=== PATIENT | male | born 1945 | race Caucasian/White ===

== ENCOUNTER 2017-10-11 18:28 | Emergency (ER) | payer MEDICARE ==
[~2017-10-11] VITALS: Ht 182.9 cm; Wt 80.3 kg
[~2017-10-11 18:28] MED LIST: ASPI-515 PO; SIMV40TA3 PO; TADA10TA PO
[2017-10-11] MEDS ORDERED: ONDANSETRON ODT 4 MG PO ONE (19:00)
[2017-10-11] MEDS ORDERED: OXYcodone/APAP 5/325MG TABLET PO ONE (19:00)
[2017-10-11] MEDS ORDERED: ONDANSETRON ODT 4 MG ONE (19:05)
[2017-10-11] MEDS ORDERED: HYDROcodone/APAP 5/325 TABLET ONE (19:06)
[2017-10-11] MEDS ORDERED: BACITRACIN ZINC OINT 500U/GM, 0.9 GM ONE (19:44)
[2017-10-11 20:17] VITALS: BP 126/82
== END 2017-10-11 20:20 | disposition home or self-care (01) ==
LOC: ED 19:50
DX: S20.212A Contusion of left front wall of thorax, initial encounter (principal); S09.90XA Unspecified injury of head, initial encounter; S46.992A Other injury of unspecified muscle, fascia and tendon at shoulder and upper arm level, left arm, initial encounter; E78.5 Hyperlipidemia, unspecified; I25.2 Old myocardial infarction; Z85.46 Personal history of malignant neoplasm of prostate; W18.30XA Fall on same level, unspecified, initial encounter; Y93.89 Activity, other specified; Y92.828 Other wilderness area as the place of occurrence of the external cause; Y99.9 Unspecified external cause status
CPT/HCPCS: 70450; 71101; 99284; Q0162

== ENCOUNTER → 2017-10-16 | Outpatient (CLI) | payer MEDICARE ==
[2017-10-16 11:12] LABS: ALANINE AMINOTRANSFERASE 23 U/L (12-78); ALBUMIN 3.8 g/dL (3.4-5.0); ANION GAP 6 mmol/L (5-15); CALCIUM 8.9 mg/dL (8.5-10.1); CHLORIDE 107 mmol/L (98-107); CHOLESTEROL, TOTAL 125 mg/dL (140-239); CREATININE 0.93 mg/dL (0.7-1.3); TRIGLYCERIDES 117 mg/dL (50-200); VLDL CHOLESTEROL 23 mg/dL (0-25)
[2017-10-16 11:14] LABS: ALKALINE PHOSPHATASE 68 U/L (45-117); BILIRUBIN,TOTAL 0.7 mg/dL (0.2-1.0); CHOL/HDL RATIO 3.7; HDL CHOL % 27 % (26-37); HDL CHOLESTEROL (DIRECT) 34 mg/dL (40-60); LDL CHOLESTEROL,CALCULATED 68 mg/dL (54-169); TOTAL PROTEIN 7.1 g/dL (6.4-8.2)
== END ==
LOC: CVU 09:50
PROVIDERS: ATTEND Internal Medicine Cardiovascular Disease
DX: I65.23 Occlusion and stenosis of bilateral carotid arteries (principal); I10 Essential (primary) hypertension; E78.2 Mixed hyperlipidemia
CPT/HCPCS: 36415; 80053; 80061; 93880

== ENCOUNTER 2017-11-05 21:14 | Emergency (ER) | payer MEDICARE ==
[~2017-11-05] VITALS: Ht 182.9 cm; Wt 77.0 kg
[2017-11-05 21:24] VITALS: BP 132/72
[2017-11-05] MEDS ORDERED: OXYcodone/APAP 5/325MG TABLET PO ONE (22:00)
[2017-11-05] MEDS ORDERED: KETOROLAC 30 MG/1 ML IM ONE (22:00)
[2017-11-05] MEDS ORDERED: KETOROLAC 30 MG/1 ML ONE (22:12)
[2017-11-05] MEDS ORDERED: OXYcodone/APAP 5/325MG TABLET ONE (22:12)
== END 2017-11-05 23:27 | disposition home or self-care (01) ==
LOC: ED 21:37
DX: S42.254A Nondisplaced fracture of greater tuberosity of right humerus, initial encounter for closed fracture (principal); W01.0XXA Fall on same level from slipping, tripping and stumbling without subsequent striking against object, initial encounter; Y93.89 Activity, other specified; Y92.410 Unspecified street and highway as the place of occurrence of the external cause; Y99.9 Unspecified external cause status; E78.5 Hyperlipidemia, unspecified; I25.2 Old myocardial infarction; Z85.46 Personal history of malignant neoplasm of prostate; F17.200 Nicotine dependence, unspecified, uncomplicated
CPT/HCPCS: 73030; 73060; 96372; 99284; J1885

== ENCOUNTER → 2020-04-03 | Outpatient (CLI) | payer MEDICARE ==
[~2020-04-03] MED LIST changes: +REGADENOSON 0.4 MG/5 ML SYRINGE ONE; +SIMV40TA20 PO; -SIMV40TA3 PO
== END | disposition home or self-care (01) ==
LOC: CFH 06:41
PROVIDERS: ATTEND Internal Medicine Cardiovascular Disease
DX: I35.0 Nonrheumatic aortic (valve) stenosis (principal); I25.10 Atherosclerotic heart disease of native coronary artery without angina pectoris; I10 Essential (primary) hypertension; I25.5 Ischemic cardiomyopathy
CPT/HCPCS: 78452; 93017; 93306; A9502; J2785

== ENCOUNTER 2020-04-07 07:48 | Day surgery (SDC) | payer MEDICARE ==
[~2020-04-07] VITALS: Ht 182.9 cm; Wt 77.3 kg
[~2020-04-07 07:48] MED LIST changes: -REGADENOSON 0.4 MG/5 ML SYRINGE ONE
[2020-04-07 08:39] VITALS: BP 105/62
[2020-04-07] MEDS ORDERED: ISOS30TA8 PO (08:45)
[2020-04-07] MEDS ORDERED: METO25TA91 PO (08:45)
[2020-04-07] MEDS ORDERED: ASPI-496 PO (08:45)
[2020-04-07 09:01] LABS: BASOPHILS # (AUTO) 0.05 x10^3/uL (0-0.1); BASOPHILS % (AUTO) 1 % (0-1); EOSINOPHILS # (AUTO) 0.21 x10^3/uL (0-0.4); EOSINOPHILS % (AUTO) 4 % (1-7); LYMPHOCYTES # (AUTO) 1.71 x10^3/uL (1-3.4); LYMPHOCYTES % (AUTO) 28 % (22-44); MD NO; MEAN CORPUSCULAR HEMOGLOBIN 30.4 pg (27.5-34.5); MEAN CORPUSCULAR HGB CONC 33.7 g/dL (33.2-36.2); MEAN PLATELET VOLUME 8.9 fL (7.4-10.4); MONOCYTES # (AUTO) 0.37 x10^3/uL (0.2-0.8); MONOCYTES % (AUTO) 6 % (2-9); NEUTROPHILS % (AUTO) 61 % (42-75); PLATELET COUNT 176 x10^3/uL (130-400); RED BLOOD COUNT 5.05 x10^6/uL (4.38-5.82); RED CELL DISTRIBUTION WIDTH 12.9 % (9.4-14.8)
[2020-04-07 09:15] LABS: CALCIUM 9.1 mg/dL (8.5-10.1); CHLORIDE 113 mmol/L (98-107)
[2020-04-07] MEDS ORDERED: VERAPAMIL 2.5 MG/ML, 2ML ONE (09:47)
[2020-04-07] MEDS ORDERED: MIDAZOLAM 1 MG/ML, 5ML ONE (09:47)
[2020-04-07] MEDS ORDERED: FENTANYL PF 100 MCG/2ML ONE (09:47)
[2020-04-07] MEDS ORDERED: BIVALIRUDIN 250 MG ONE (09:47)
[2020-04-07] MEDS ORDERED: TICAGRELOR 90 MG TABLET ONE (09:47)
[2020-04-07] MEDS ORDERED: HEPARIN 1,000 UNITS/ML, 10ML ONE (09:48)
[2020-04-07] MEDS ORDERED: LIDOCAINE-MPF 1%, 5ML ONE (09:48)
[2020-04-07 09:51] LABS: ANION GAP 4 mmol/L (5-15)
== END 2020-04-07 14:04 | disposition home or self-care (01) ==
LOC: CACL 07:48
PROVIDERS: ATTEND Internal Medicine Cardiovascular Disease
DX: I25.118 Atherosclerotic heart disease of native coronary artery with other forms of angina pectoris (principal); I65.21 Occlusion and stenosis of right carotid artery; E78.2 Mixed hyperlipidemia; E78.00 Pure hypercholesterolemia, unspecified; I10 Essential (primary) hypertension; I25.2 Old myocardial infarction; Z95.818 Presence of other cardiac implants and grafts; Z79.82 Long term (current) use of aspirin; Z79.899 Other long term (current) drug therapy; Z98.890 Other specified postprocedural states; Z87.891 Personal history of nicotine dependence; Z79.4 Long term (current) use of insulin; Z01.810 Encounter for preprocedural cardiovascular examination
CPT/HCPCS: 36415; 80048; 85025; 93458; 93880; 93970; 99156; C1769; C1894; J1644; J2250; J3010; Q9967; J0583

== ENCOUNTER 2020-04-12 04:39 | Inpatient (IN) | payer MEDICARE ==
[2020-04-11 12:39] LABS: BASOPHILS # (AUTO) 0.05 x10^3/uL (0-0.1); BASOPHILS % (AUTO) 1 % (0-1); EOSINOPHILS # (AUTO) 0.18 x10^3/uL (0-0.4); EOSINOPHILS % (AUTO) 3 % (1-7); LYMPHOCYTES % (AUTO) 35 % (22-44); MD NO; MEAN CORPUSCULAR HEMOGLOBIN 30.3 pg (27.5-34.5); MEAN CORPUSCULAR HGB CONC 33.3 g/dL (33.2-36.2); MEAN PLATELET VOLUME 8.9 fL (7.4-10.4); MONOCYTES % (AUTO) 7 % (2-9); NEUTROPHILS % (AUTO) 54 % (42-75); PLATELET COUNT 179 x10^3/uL (130-400); RED CELL DISTRIBUTION WIDTH 13.2 % (9.4-14.8)
[2020-04-11 12:50] LABS: ALANINE AMINOTRANSFERASE 38 U/L (12-78); ALBUMIN 3.9 g/dL (3.4-5.0); ANION GAP 1 mmol/L (5-15); CALCIUM 9.1 mg/dL (8.5-10.1); CHLORIDE 109 mmol/L (98-107); CREATININE 0.88 mg/dL (0.7-1.3)
[2020-04-11 12:53] LABS: ALKALINE PHOSPHATASE 68 U/L (45-117); BILIRUBIN,TOTAL 0.7 mg/dL (0.2-1.0); TOTAL PROTEIN 6.9 g/dL (6.4-8.2)
[2020-04-11 12:54] LABS: INTERNATIONAL NORMALIZED RATIO 0.96 (0.93-1.1); PROTHROMBIN TIME 10.2 Seconds (9.6-11.5)
[2020-04-11 13:32] LABS: MICROSCOPIC INDICATED
[~2020-04-12] VITALS: Ht 182.9 cm; Wt 75.3 kg
[~2020-04-12 04:39] MED LIST changes: +ASPI-496 PO; +ISOS30TA8 PO; +METO25TA91 PO
[2020-04-12] MEDS ORDERED: CHLORHEXIDINE 15 ML UDC MM PRN (05:00)
[2020-04-12] MEDS ORDERED: METOPROLOL TARTRATE 25 MG TAB PO ONE (05:00)
[2020-04-12] MEDS ORDERED: INSULIN LISPRO 100 UNITS/ML, PEN SQ-INSULIN SCH (05:00)
[2020-04-12] MEDS: MUPIROCIN OINT 2%, 22GM TP SCH ×2 (05:07→20:32)
[2020-04-12] MEDS ORDERED: FENTANYL PF 250 MCG/5ML ONE ×5 (06:41→06:42)
[2020-04-12] MEDS ORDERED: MIDAZOLAM 10MG/2 ML ONE (06:41)
[2020-04-12] MEDS ORDERED: EPINEPHRINE 1 MG/ML, 1ML ONE (06:43)
[2020-04-12] MEDS ORDERED: ROCURONIUM 10MG/ML,5ML ONE ×3 (06:43→09:42)
[2020-04-12] MEDS ORDERED: AMINOCAPROIC ACID 250 MG/ML, 20ML ONE ×2 (06:43)
[2020-04-12] MEDS ORDERED: PHENYLEPHRINE 10 MG/ML ONE (06:43)
[2020-04-12] MEDS ORDERED: PROPOFOL 10 MG/ML, 20ML ONE (06:43)
[2020-04-12] MEDS ORDERED: HEPARIN 1,000 UNITS/ML, 10ML ONE (06:44)
[2020-04-12] MEDS ORDERED: PAPAVERINE 30 MG/ML, 2ML ONE (06:44)
[2020-04-12] MEDS ORDERED: VANCOMYCIN 1,200 MG in SODIUM CHLORIDE 0.9% 250 ML IV PRN (07:30)
[2020-04-12] MEDS ORDERED: PHENYLEPHRINE 50 MG in SODIUM CHLORIDE 0.9% 245 ML IV PRN ×2 (07:30→12:33)
[2020-04-12] MEDS ORDERED: POTASSIUM CHLORIDE 80 MEQ, SODIUM BICARBONATE 8.4% 10 MEQ, MAGNESIUM SULFATE 0.5 GM, LI... IV PRN (07:30)
[2020-04-12] MEDS ORDERED: CEFUROXIME 1.5 GM in SODIUM CHLORIDE 0.9% 50 ML IVPB PRN (07:30)
[2020-04-12] MEDS ORDERED: ALBUMIN HUMAN 5% 500 ML IV PRN (07:30)
[2020-04-12] MEDS ORDERED: DEXMEDETOMIDINE 200 MCG in SODIUM CHLORIDE 0.9% 48 ML IV PRN ×2 (07:30→12:33)
[2020-04-12] MEDS ORDERED: MANNITOL PMX 20% 500 ML IVPB PRN (07:30)
[2020-04-12] MEDS ORDERED: REGULAR INSULIN 100 UNITS in SODIUM CHLORIDE 0.9% 99 ML IV PRN ×2 (07:30→12:33)
[2020-04-12] MEDS ORDERED: EPINEPHRINE 5 MG in SODIUM CHLORIDE 0.9% 245 ML IV PRN ×2 (07:30→13:00)
[2020-04-12] MEDS: DOCUSATE 100 MG CAPSULE PO SCH ×2 (09:00→20:32)
[2020-04-12] MEDS: SODIUM CHLORIDE FLUSH 10ML SYR IVF SCH ×3 (09:00→20:32)
[2020-04-12] MEDS ORDERED: PROTAMINE SULFATE 10 MG/ML, 25ML ONE ×2 (09:57)
[2020-04-12] MEDS ORDERED: FILTER 0.22 MICRON FOR AMIODARONE IV PRN (11:00)
[2020-04-12] MEDS ORDERED: AMIODARONE 450 MG in DEXTROSE 5% 241 ML IV PRN (11:00)
[2020-04-12] MEDS ORDERED: FUROSEMIDE 20 MG/2 ML ONE (11:14)
[2020-04-12] MEDS ORDERED: MILRINONE 1 MG/ML, 10ML IV ONE (11:19)
[2020-04-12] MEDS ORDERED: AMIODARONE 50 MG/ML, 3ML ONE ×2 (11:50)
[2020-04-12] MEDS ORDERED: CALCIUM CHLORIDE 10%, 10ML SYR ONE ×2 (12:04)
[2020-04-12] MEDS ORDERED: FENTANYL PF 100 MCG/2ML ONE ×2 (12:09→12:12)
[2020-04-12] MEDS ORDERED: NITROGLYCERIN/D5W PMX 250 ML IV PRN (12:33)
[2020-04-12] MEDS ORDERED: SODIUM CHLORIDE 0.9% 1,000 ML IV PRN (12:33)
[2020-04-12] MEDS ORDERED: DOBUTAMINE 250 MG in SODIUM CHLORIDE 0.9% 230 ML IV PRN (12:33)
[2020-04-12] MEDS ORDERED: VASOPRESSIN 20 UNIT in SODIUM CHLORIDE 0.9% 99 ML IV PRN (12:33)
[2020-04-12] MEDS ORDERED: DEXTROSE 4 GM TAB.CHEW PO PRN (13:00)
[2020-04-12] MEDS ORDERED: GLUCAGON 1 MG IM PRN (13:00)
[2020-04-12] MEDS ORDERED: LACTATED RINGERS 1,000 ML IV PRN (13:00)
[2020-04-12] MEDS ORDERED: BISACODYL 10 MG SUPP PR PRN (13:00)
[2020-04-12] MEDS ORDERED: INSULIN REGULAR 100 UNITS/ML, 3ML VIAL IVPush PRN (13:00)
[2020-04-12] MEDS ORDERED: ONDANSETRON 2MG/ML, 2ML IVPush PRN (13:00)
[2020-04-12] MEDS: ASPIRIN 81 MG TABLET EC PO SCH (13:00)
[2020-04-12] MEDS ORDERED: MIDAZOLAM 1 MG/ML, 5ML IVPush PRN (13:00)
[2020-04-12] MEDS: KSCALE TO 4.5 IV SCH ×2 (13:00→19:00)
[2020-04-12] MEDS ORDERED: SODIUM BICARB 8.4%, 50ML SYRINGE IV PRN (13:00)
[2020-04-12] MEDS ORDERED: BISACODYL 5 MG EC TABLET PO PRN (13:00)
[2020-04-12] MEDS ORDERED: morphine SULFATE 10 MG/ML, 1ML IVPush PRN (13:00)
[2020-04-12] MEDS ORDERED: DEXTROSE 50%, 50ML SYRINGE IVPush PRN (13:00)
[2020-04-12] MEDS ORDERED: PROCHLORPERAZINE 5 MG/ML, 2ML IVPush PRN (13:00)
[2020-04-12] MEDS ORDERED: ACETAMINOPHEN 650 MG SUPP PR PRN (13:00)
[2020-04-12] MEDS ORDERED: MORPHINE SULFATE 4 MG/ML, 1ML ONE (13:01)
[2020-04-12] MEDS ORDERED: LIDOCAINE-MPF 2% ,5ML ONE (13:01)
[2020-04-12] MEDS ORDERED: SODIUM BICARB 8.4%, 50ML SYRINGE ONE (13:01)
[2020-04-12] MEDS ORDERED: HEPARIN 1,000 UNITS/ML, 30ML ONE (13:01)
[2020-04-12] MEDS ORDERED: SODIUM BICARBONATE 1 MEQ/ML, 50ML VIAL ONE (13:01)
[2020-04-12] MEDS ORDERED: ALBUMIN HUMAN 25% 50 ML ONE (13:02)
[2020-04-12 13:09] LABS: GLUCOSE BY BLOOD GAS ANALYZER 148 mg/dL (70-110); HEMOGLOBIN BY BLOOD GAS ANALYZ 11.6 g/dL (14.0-18.0); POTASSIUM BY BLOOD GAS ANALYZR 4.3 mmol/L (3.6-5.5)
[2020-04-12 13:21] LABS: INTERNATIONAL NORMALIZED RATIO 1.2 (0.93-1.1); PROTHROMBIN TIME 12.7 Seconds (9.6-11.5)
[2020-04-12] MEDS: MAGNESIUM SULFATE 1 GM in SODIUM CHLORIDE 0.9% 100 ML IVPB SCH (13:54)
[2020-04-12] MEDS: INSULIN LISPRO 100 UNITS/ML, PEN SQ-INSULIN SCH ×3 (15:12→21:02)
[2020-04-12 17:36] VITALS: BP 93/48
[2020-04-12 17:45] VITALS: BP 101/56
[2020-04-12] MEDS: OXYcodone IR 5MG TABLET PO PRN (17:57)
[2020-04-12 17:59] VITALS: BP 109/55
[2020-04-12] MEDS: CEFUROXIME 1.5 GM in SODIUM CHLORIDE 0.9% 50 ML IVPB SCH (20:31)
[2020-04-12] MEDS: MUPIROCIN OINT 2%, 22GM NAS SCH (20:32)
[2020-04-12] MEDS: HYDROcodone/APAP 5/325 TABLET PO PRN (20:40)
[2020-04-12] MEDS: VANCOMYCIN 1,200 MG in SODIUM CHLORIDE 0.9% 250 ML IVPB SCH (22:01)
[2020-04-13] MEDS: KSCALE TO 4.5 IV SCH ×2 (01:00→06:06)
[2020-04-13] MEDS: OXYcodone IR 5MG TABLET PO PRN ×4 (04:21→22:11)
[2020-04-13 04:55] VITALS: BP 102/50
[2020-04-13 05:46] LABS: ALBUMIN 3.3 g/dL (3.4-5.0); ANION GAP 9 mmol/L (5-15); CALCIUM 8.4 mg/dL (8.5-10.1); CHLORIDE 112 mmol/L (98-107); CREATININE 0.75 mg/dL (0.7-1.3)
[2020-04-13 05:47] LABS: BASOPHILS # (AUTO) 0.01 x10^3/uL (0-0.1); BASOPHILS % (AUTO) 0 % (0-1); EOSINOPHILS % (AUTO) 0 % (1-7); LYMPHOCYTES # (AUTO) 0.53 x10^3/uL (1-3.4); LYMPHOCYTES % (AUTO) 5 % (22-44); MD NO; MEAN CORPUSCULAR HEMOGLOBIN 30.7 pg (27.5-34.5); MEAN CORPUSCULAR HGB CONC 33.8 g/dL (33.2-36.2); MEAN CORPUSCULAR VOLUME 90.8 fL (81-97); MEAN PLATELET VOLUME 9.7 fL (7.4-10.4); MONOCYTES # (AUTO) 0.64 x10^3/uL (0.2-0.8); MONOCYTES % (AUTO) 6 % (2-9); NEUTROPHILS # (AUTO) 10.46 x10^3/uL (1.8-6.8); NEUTROPHILS % (AUTO) 90 % (42-75); PLATELET COUNT 180 x10^3/uL (130-400); RED BLOOD COUNT 3.62 x10^6/uL (4.38-5.82); RED CELL DISTRIBUTION WIDTH 13.3 % (9.4-14.8)
[2020-04-13] MEDS ORDERED: AMIODARONE 150 MG in DEXTROSE 5% 100 ML IV ONE (06:00)
[2020-04-13] MEDS ORDERED: POTASSIUM CHLORIDE PMX 100 ML IV ONE (06:00)
[2020-04-13] MEDS ORDERED: METOPROLOL 1 MG/ML, 5ML IVPush ONE (06:00)
[2020-04-13] MEDS: INSULIN LISPRO 100 UNITS/ML, PEN SQ-INSULIN SCH ×4 (06:07→21:00)
[2020-04-13] MEDS ORDERED: MAGNESIUM HYDROXIDE 8%, 30ML UDC PO PRN (08:00)
[2020-04-13] MEDS: CEFUROXIME 1.5 GM in SODIUM CHLORIDE 0.9% 50 ML IVPB SCH (08:30)
[2020-04-13] MEDS: VANCOMYCIN 1,200 MG in SODIUM CHLORIDE 0.9% 250 ML IVPB SCH (08:30)
[2020-04-13] MEDS: AMIODARONE 200 MG TABLET PO SCH ×2 (08:37→20:30)
[2020-04-13] MEDS: DOCUSATE 100 MG CAPSULE PO SCH ×2 (08:37→20:28)
[2020-04-13] MEDS: METOPROLOL TARTRATE 25 MG TAB PO/NG SCH ×2 (08:38→20:29)
[2020-04-13] MEDS: ASPIRIN 81 MG TABLET EC PO SCH (08:38)
[2020-04-13] MEDS: SODIUM CHLORIDE FLUSH 10ML SYR IVF SCH ×5 (08:39→20:30)
[2020-04-13] MEDS: MUPIROCIN OINT 2%, 22GM NAS SCH ×2 (08:39→22:03)
[2020-04-13] MEDS: MUPIROCIN OINT 2%, 22GM TP SCH ×2 (08:39→21:00)
[2020-04-13] MEDS ORDERED: FUROSEMIDE 20 MG/2 ML IV SCH (09:00)
[2020-04-13] MEDS: MAGNESIUM SULFATE 1 GM in SODIUM CHLORIDE 0.9% 100 ML IVPB SCH (11:40)
[2020-04-13 15:48] VITALS: BP 108/66
[2020-04-13 19:25] VITALS: BP 105/64
[2020-04-13] MEDS: SIMVASTATIN 40 MG TABLET PO SCH (20:28)
[2020-04-13] MEDS: CHLORHEXIDINE 15 ML UDC MM SCH (20:30)
[2020-04-14 00:58] VITALS: BP 104/63
[2020-04-14] MEDS: HYDROcodone/APAP 5/325 TABLET PO PRN ×2 (03:17→10:21)
[2020-04-14 03:59] LABS: ANION GAP 5 mmol/L (5-15); CALCIUM 7.7 mg/dL (8.5-10.1); CHLORIDE 106 mmol/L (98-107); CREATININE 0.72 mg/dL (0.7-1.3)
[2020-04-14 04:05] LABS: BASOPHILS # (AUTO) 0.02 x10^3/uL (0-0.1); BASOPHILS % (AUTO) 0 % (0-1); EOSINOPHILS # (AUTO) 0.01 x10^3/uL (0-0.4); EOSINOPHILS % (AUTO) 0 % (1-7); LYMPHOCYTES # (AUTO) 0.83 x10^3/uL (1-3.4); LYMPHOCYTES % (AUTO) 8 % (22-44); MD NO; MEAN CORPUSCULAR HEMOGLOBIN 31.2 pg (27.5-34.5); MEAN CORPUSCULAR HGB CONC 34.4 g/dL (33.2-36.2); MEAN CORPUSCULAR VOLUME 90.9 fL (81-97); MEAN PLATELET VOLUME 9.4 fL (7.4-10.4); MONOCYTES # (AUTO) 0.54 x10^3/uL (0.2-0.8); MONOCYTES % (AUTO) 5 % (2-9); NEUTROPHILS # (AUTO) 9.39 x10^3/uL (1.8-6.8); NEUTROPHILS % (AUTO) 87 % (42-75); PLATELET COUNT 142 x10^3/uL (130-400); RED BLOOD COUNT 3.19 x10^6/uL (4.38-5.82); RED CELL DISTRIBUTION WIDTH 13.4 % (9.4-14.8)
[2020-04-14 06:58] VITALS: BP 110/62
[2020-04-14] MEDS: INSULIN LISPRO 100 UNITS/ML, PEN SQ-INSULIN SCH ×4 (07:00→21:00)
[2020-04-14] MEDS: MUPIROCIN OINT 2%, 22GM TP SCH ×2 (09:00→21:22)
[2020-04-14] MEDS ORDERED: AMIODARONE 150 MG in DEXTROSE 5% 100 ML IV ONE (09:30)
[2020-04-14] MEDS ORDERED: FILTER 0.22 MICRON IV ONE (09:30)
[2020-04-14] MEDS: SODIUM CHLORIDE FLUSH 10ML SYR IVF SCH ×6 (10:19→21:23)
[2020-04-14] MEDS: CHLORHEXIDINE 15 ML UDC MM SCH ×2 (10:20→21:21)
[2020-04-14] MEDS: ENOXAPARIN 40 MG/0.4 ML SQ SCH (10:21)
[2020-04-14] MEDS: ASPIRIN 81 MG TABLET EC PO SCH (10:21)
[2020-04-14] MEDS: METOPROLOL TARTRATE 25 MG TAB PO/NG SCH ×2 (10:22→21:21)
[2020-04-14] MEDS: DOCUSATE 100 MG CAPSULE PO SCH ×2 (10:22→21:21)
[2020-04-14] MEDS: MUPIROCIN OINT 2%, 22GM NAS SCH ×2 (10:23→21:00)
[2020-04-14] MEDS ORDERED: POTASSIUM CHLORIDE 20 MEQ TAB.ER.PRT PO ONE (12:30)
[2020-04-14] MEDS: MAGNESIUM SULFATE 1 GM in SODIUM CHLORIDE 0.9% 100 ML IVPB SCH (13:00)
[2020-04-14 13:16] VITALS: BP 117/67
[2020-04-14] MEDS: AMIODARONE 200 MG TABLET PO SCH ×3 (14:06→21:21)
[2020-04-14] MEDS ORDERED: MAGNESIUM SULFATE 1 GM in SODIUM CHLORIDE 0.9% 100 ML IVPB SCH (15:00)
[2020-04-14 19:03] VITALS: BP 129/71
[2020-04-14] MEDS ORDERED: AMIODARONE 200 MG TABLET PO SCH (21:00)
[2020-04-14] MEDS: SIMVASTATIN 40 MG TABLET PO SCH (21:25)
[2020-04-15 00:59] VITALS: BP 109/64
[2020-04-15 05:16] LABS: BASOPHILS # (AUTO) 0.01 x10^3/uL (0-0.1); BASOPHILS % (AUTO) 0 % (0-1); EOSINOPHILS % (AUTO) 0 % (1-7); LYMPHOCYTES # (AUTO) 1.05 x10^3/uL (1-3.4); LYMPHOCYTES % (AUTO) 11 % (22-44); MD NO; MEAN CORPUSCULAR HEMOGLOBIN 30.4 pg (27.5-34.5); MEAN CORPUSCULAR HGB CONC 33.8 g/dL (33.2-36.2); MEAN PLATELET VOLUME 9.4 fL (7.4-10.4); MONOCYTES % (AUTO) 6 % (2-9); NEUTROPHILS # (AUTO) 7.64 x10^3/uL (1.8-6.8); NEUTROPHILS % (AUTO) 83 % (42-75); PLATELET COUNT 163 x10^3/uL (130-400); RED BLOOD COUNT 3.39 x10^6/uL (4.38-5.82); RED CELL DISTRIBUTION WIDTH 13.3 % (9.4-14.8)
[2020-04-15 05:17] LABS: ANION GAP 6 mmol/L (5-15); CHLORIDE 106 mmol/L (98-107)
[2020-04-15 05:18] LABS: CREATININE 0.72 mg/dL (0.7-1.3)
[2020-04-15] MEDS: INSULIN LISPRO 100 UNITS/ML, PEN SQ-INSULIN SCH ×2 (07:00→11:00)
[2020-04-15 07:18] VITALS: BP 111/65
[2020-04-15] MEDS: SODIUM CHLORIDE FLUSH 10ML SYR IVF SCH ×6 (09:00→21:36)
[2020-04-15] MEDS: MUPIROCIN OINT 2%, 22GM TP SCH ×2 (09:00→21:37)
[2020-04-15] MEDS: CLOPIDOGREL 75 MG TABLET PO SCH (09:57)
[2020-04-15] MEDS: AMIODARONE 200 MG TABLET PO SCH ×3 (09:57→21:35)
[2020-04-15] MEDS: ASPIRIN 81 MG TABLET EC PO SCH (09:57)
[2020-04-15] MEDS: MUPIROCIN OINT 2%, 22GM NAS SCH ×2 (09:57→21:36)
[2020-04-15] MEDS: METOPROLOL TARTRATE 25 MG TAB PO/NG SCH ×2 (09:57→21:36)
[2020-04-15] MEDS: CHLORHEXIDINE 15 ML UDC MM SCH (09:57)
[2020-04-15] MEDS: DOCUSATE 100 MG CAPSULE PO SCH ×2 (09:57→21:37)
[2020-04-15] MEDS: ENOXAPARIN 40 MG/0.4 ML SQ SCH (09:58)
[2020-04-15 12:27] VITALS: BP 112/62
[2020-04-15 17:35] VITALS: BP 118/62
[2020-04-15 20:58] VITALS: BP 115/73
[2020-04-15] MEDS: ATORVASTATIN 80 MG TABLET PO SCH (21:35)
[2020-04-16 01:52] VITALS: BP 97/59
[2020-04-16] MEDS: DOCUSATE 100 MG CAPSULE PO SCH (04:14)
[2020-04-16 05:12] LABS: ANION GAP 8 mmol/L (5-15); CALCIUM 8.5 mg/dL (8.5-10.1); CHLORIDE 109 mmol/L (98-107)
[2020-04-16 05:13] LABS: CREATININE 0.74 mg/dL (0.7-1.3)
[2020-04-16 05:18] LABS: BASOPHILS # (AUTO) 0.02 x10^3/uL (0-0.1); BASOPHILS % (AUTO) 0 % (0-1); EOSINOPHILS # (AUTO) 0.02 x10^3/uL (0-0.4); EOSINOPHILS % (AUTO) 0 % (1-7); LYMPHOCYTES # (AUTO) 0.82 x10^3/uL (1-3.4); LYMPHOCYTES % (AUTO) 14 % (22-44); MD NO; MEAN CORPUSCULAR HEMOGLOBIN 30.8 pg (27.5-34.5); MEAN CORPUSCULAR HGB CONC 34.2 g/dL (33.2-36.2); MEAN CORPUSCULAR VOLUME 89.9 fL (81-97); MEAN PLATELET VOLUME 9.2 fL (7.4-10.4); MONOCYTES # (AUTO) 0.51 x10^3/uL (0.2-0.8); MONOCYTES % (AUTO) 9 % (2-9); NEUTROPHILS # (AUTO) 4.62 x10^3/uL (1.8-6.8); NEUTROPHILS % (AUTO) 77 % (42-75); PLATELET COUNT 157 x10^3/uL (130-400); RED BLOOD COUNT 3.14 x10^6/uL (4.38-5.82)
[2020-04-16 07:03] VITALS: BP 104/50
[2020-04-16] MEDS ORDERED: POTASSIUM CHLORIDE 20 MEQ TAB.ER.PRT PO ONE (07:30)
[2020-04-16] MEDS: MUPIROCIN OINT 2%, 22GM TP SCH ×2 (09:00→21:00)
[2020-04-16] MEDS: SODIUM CHLORIDE FLUSH 10ML SYR IVF SCH ×6 (09:00→21:00)
[2020-04-16] MEDS: MUPIROCIN OINT 2%, 22GM NAS SCH ×2 (09:21→20:48)
[2020-04-16] MEDS: METOPROLOL TARTRATE 25 MG TAB PO/NG SCH ×2 (09:22→20:49)
[2020-04-16] MEDS: CLOPIDOGREL 75 MG TABLET PO SCH (09:22)
[2020-04-16] MEDS: ASPIRIN 81 MG TABLET EC PO SCH (09:22)
[2020-04-16] MEDS: HYDROcodone/APAP 5/325 TABLET PO PRN ×3 (09:22→23:21)
[2020-04-16] MEDS: AMIODARONE 200 MG TABLET PO SCH ×3 (09:22→20:49)
[2020-04-16] MEDS: ENOXAPARIN 40 MG/0.4 ML SQ SCH (09:23)
[2020-04-16] MEDS ORDERED: AMIODARONE 150 MG in DEXTROSE 5% 100 ML IV ONE (12:00)
[2020-04-16] MEDS ORDERED: FILTER 0.22 MICRON FOR AMIODARONE IV PRN (12:00)
[2020-04-16 12:30] VITALS: BP 102/67
[2020-04-16 13:00] VITALS: BP 94/59
[2020-04-16 16:35] VITALS: BP 102/53
[2020-04-16] MEDS: ATORVASTATIN 80 MG TABLET PO SCH (20:48)
[2020-04-16 20:52] VITALS: BP 108/64
[2020-04-17 00:32] VITALS: BP 97/49
[2020-04-17 05:57] LABS: BASOPHILS # (AUTO) 0.03 x10^3/uL (0-0.1); BASOPHILS % (AUTO) 1 % (0-1); EOSINOPHILS # (AUTO) 0.07 x10^3/uL (0-0.4); EOSINOPHILS % (AUTO) 1 % (1-7); LYMPHOCYTES # (AUTO) 1.06 x10^3/uL (1-3.4); LYMPHOCYTES % (AUTO) 18 % (22-44); MD NO; MEAN CORPUSCULAR HEMOGLOBIN 30.8 pg (27.5-34.5); MEAN CORPUSCULAR HGB CONC 34.2 g/dL (33.2-36.2); MEAN CORPUSCULAR VOLUME 89.8 fL (81-97); MEAN PLATELET VOLUME 8.5 fL (7.4-10.4); MONOCYTES # (AUTO) 0.44 x10^3/uL (0.2-0.8); MONOCYTES % (AUTO) 7 % (2-9); NEUTROPHILS # (AUTO) 4.36 x10^3/uL (1.8-6.8); NEUTROPHILS % (AUTO) 73 % (42-75); PLATELET COUNT 175 x10^3/uL (130-400); RED BLOOD COUNT 3.28 x10^6/uL (4.38-5.82); RED CELL DISTRIBUTION WIDTH 13.4 % (9.4-14.8)
[2020-04-17 06:10] LABS: ANION GAP 3 mmol/L (5-15); CALCIUM 8.4 mg/dL (8.5-10.1); CHLORIDE 109 mmol/L (98-107); CREATININE 0.72 mg/dL (0.7-1.3)
[2020-04-17 06:45] VITALS: BP 102/60
[2020-04-17] MEDS: ACETAMINOPHEN 325 MG TABLET PO PRN ×2 (07:23→15:14)
[2020-04-17] MEDS: SODIUM CHLORIDE FLUSH 10ML SYR IVF SCH ×6 (09:02→20:41)
[2020-04-17] MEDS: DOCUSATE 100 MG CAPSULE PO SCH ×2 (09:02→19:07)
[2020-04-17] MEDS: MUPIROCIN OINT 2%, 22GM NAS SCH (09:02)
[2020-04-17] MEDS: MUPIROCIN OINT 2%, 22GM TP SCH ×2 (09:03→20:44)
[2020-04-17] MEDS: METOPROLOL TARTRATE 25 MG TAB PO/NG SCH ×2 (09:10→20:41)
[2020-04-17] MEDS: ENOXAPARIN 40 MG/0.4 ML SQ SCH (09:10)
[2020-04-17] MEDS: CLOPIDOGREL 75 MG TABLET PO SCH (09:10)
[2020-04-17] MEDS: ASPIRIN 81 MG TABLET EC PO SCH (09:10)
[2020-04-17] MEDS: AMIODARONE 200 MG TABLET PO SCH ×3 (09:10→20:40)
[2020-04-17 12:47] VITALS: BP 102/66
[2020-04-17] MEDS: OXYcodone IR 5MG TABLET PO PRN ×2 (15:14→20:43)
[2020-04-17 19:47] VITALS: BP 112/63
[2020-04-17] MEDS: ATORVASTATIN 80 MG TABLET PO SCH (20:40)
[2020-04-18 02:18] VITALS: BP 115/69
[2020-04-18] MEDS: ACETAMINOPHEN 325 MG TABLET PO PRN (02:24)
[2020-04-18 04:54] LABS: BASOPHILS # (AUTO) 0.02 x10^3/uL (0-0.1); BASOPHILS % (AUTO) 0 % (0-1); EOSINOPHILS # (AUTO) 0.08 x10^3/uL (0-0.4); EOSINOPHILS % (AUTO) 1 % (1-7); LYMPHOCYTES # (AUTO) 1.18 x10^3/uL (1-3.4); LYMPHOCYTES % (AUTO) 16 % (22-44); MD NO; MEAN CORPUSCULAR HEMOGLOBIN 30.4 pg (27.5-34.5); MEAN CORPUSCULAR HGB CONC 33.5 g/dL (33.2-36.2); MEAN CORPUSCULAR VOLUME 90.9 fL (81-97); MEAN PLATELET VOLUME 8.5 fL (7.4-10.4); MONOCYTES # (AUTO) 0.47 x10^3/uL (0.2-0.8); MONOCYTES % (AUTO) 6 % (2-9); NEUTROPHILS # (AUTO) 5.51 x10^3/uL (1.8-6.8); NEUTROPHILS % (AUTO) 76 % (42-75); PLATELET COUNT 182 x10^3/uL (130-400); RED BLOOD COUNT 2.97 x10^6/uL (4.38-5.82); RED CELL DISTRIBUTION WIDTH 13.1 % (9.4-14.8)
[2020-04-18 05:00] LABS: ANION GAP 6 mmol/L (5-15); CHLORIDE 108 mmol/L (98-107)
[2020-04-18 05:02] LABS: CREATININE 0.71 mg/dL (0.7-1.3)
[2020-04-18 06:53] VITALS: BP 104/56
[2020-04-18] MEDS: OXYcodone IR 5MG TABLET PO PRN (08:42)
[2020-04-18] MEDS: ENOXAPARIN 40 MG/0.4 ML SQ SCH (08:42)
[2020-04-18] MEDS: ASPIRIN 81 MG TABLET EC PO SCH (08:43)
[2020-04-18] MEDS: AMIODARONE 200 MG TABLET PO SCH (08:43)
[2020-04-18] MEDS: MUPIROCIN OINT 2%, 22GM TP SCH (08:43)
[2020-04-18] MEDS: CLOPIDOGREL 75 MG TABLET PO SCH (08:43)
[2020-04-18] MEDS: SODIUM CHLORIDE FLUSH 10ML SYR IVF SCH ×3 (08:43→08:44)
[2020-04-18] MEDS: METOPROLOL TARTRATE 25 MG TAB PO/NG SCH (08:43)
[2020-04-18] MEDS ORDERED: ATOR-2 PO (09:18)
[2020-04-18] MEDS ORDERED: AMIO200T42 PO (09:18)
[2020-04-18] MEDS ORDERED: CLOP75TA PO (09:18)
== END 2020-04-18 13:11 | disposition home health service (06) | DRG 236 ==
LOC: 5SO 04:39 → CSU 07:18 → 5SO 04-13 15:41
PROVIDERS: ADMIT Thoracic Surgery (Cardiothoracic Vascular Surgery); ATTEND Thoracic Surgery (Cardiothoracic Vascular Surgery)
PROC: 02100Z9 Bypass Coronary Artery, One Artery from Left Internal Mammary, Open Approach (ICD-10-PCS; 2020-04-12)
PROC: 06BP4ZZ Excision of Right Saphenous Vein, Percutaneous Endoscopic Approach (ICD-10-PCS; 2020-04-12)
PROC: 5A1221Z Performance of Cardiac Output, Continuous (ICD-10-PCS; 2020-04-12)
PROC: B24BZZ4 Ultrasonography of Heart with Aorta, Transesophageal (ICD-10-PCS; 2020-04-12)
PROC: 30233R1 Transfusion of Nonautologous Platelets into Peripheral Vein, Percutaneous Approach (ICD-10-PCS; 2020-04-12)
PROC: 021109W Bypass Coronary Artery, Two Arteries from Aorta with Autologous Venous Tissue, Open Approach (ICD-10-PCS; principal; 2020-04-12 07:30)
DX: I25.119 Atherosclerotic heart disease of native coronary artery with unspecified angina pectoris (principal); D68.69 Other thrombophilia; I48.92 Unspecified atrial flutter; E78.5 Hyperlipidemia, unspecified; I10 Essential (primary) hypertension; G89.18 Other acute postprocedural pain; D64.9 Anemia, unspecified; I48.0 Paroxysmal atrial fibrillation; E87.6 Hypokalemia; R19.7 Diarrhea, unspecified; F17.210 Nicotine dependence, cigarettes, uncomplicated; F41.9 Anxiety disorder, unspecified; Z79.899 Other long term (current) drug therapy; Z95.5 Presence of coronary angioplasty implant and graft; Z90.79 Acquired absence of other genital organ(s); Z79.82 Long term (current) use of aspirin; Z20.828 Contact with and (suspected) exposure to other viral communicable diseases
CPT/HCPCS: 36415; 36600; 71045; 71046; 74021; 80048; 80053; 81001; 82040; 82330; 82800; 82803; 82810; 82947; 82962; 83036; 83735; 84132; 84295; 85014; 85018; 85025; 85049; 85347; 85610; 85730; 86850; 86900; 86923; 87081; 87635; 93005; 93312; 93321; 93325; 94002; G0378; J0171; J0697; J1644; J1650; J1815; J2250; J2260; J2704; J2720; J3010; J3370; J3475; J3480; J7060; P9045; P9047; C1751; C1760; J0282; J1940; J2270; J2370; J2440; J7050; P9035

== ENCOUNTER → 2021-05-07 | Outpatient (CLI) | payer MEDICARE ==
[~2021-05-07] MED LIST changes: +AMIO200T42 PO; -ASPI-515 PO; +ASPI-963 PO; +ATOR-2 PO; +CLOP75TA PO
[2021-05-07 10:20] LABS: ALBUMIN 3.7 g/dL (3.4-5.0); ANION GAP 4 mmol/L (5-15); CALCIUM 8.9 mg/dL (8.5-10.1); CHLORIDE 108 mmol/L (98-107); CHOLESTEROL, TOTAL 108 mg/dL (140-239)
[2021-05-07 10:22] LABS: ALANINE AMINOTRANSFERASE 23 U/L (12-78); ALKALINE PHOSPHATASE 55 U/L (45-117); BILIRUBIN,TOTAL 0.6 mg/dL (0.2-1.0); CREATININE 0.88 mg/dL (0.7-1.3); HDL CHOL % 33 % (26-37); HDL CHOLESTEROL (DIRECT) 36 mg/dL (40-60); LDL CHOLESTEROL,CALCULATED 49 mg/dL (54-169); LDL/HDL RATIO 1.4 (0.5-3.0); TOTAL PROTEIN 6.7 g/dL (6.4-8.2); TRIGLYCERIDES 113 mg/dL (50-200); VLDL CHOLESTEROL 23 mg/dL (0-25)
== END | disposition home or self-care (01) ==
LOC: LAB 09:50
PROVIDERS: ATTEND Internal Medicine Cardiovascular Disease
DX: I10 Essential (primary) hypertension (principal); E78.2 Mixed hyperlipidemia; I65.22 Occlusion and stenosis of left carotid artery
CPT/HCPCS: 36415; 80053; 80061